=== PATIENT | male | born 1960 | race Caucasian/White ===

== ENCOUNTER 2016-08-08 05:52 | Day surgery (SDC) | payer BC, OTHER ==
[2016-08-06 18:29] VITALS: BMI 35.2
[2016-08-08] MEDS ORDERED: NITROGLYCERIN SL TABS 0.4 MG TAB SUBLINGUAL PRN (05:57)
[2016-08-08] MEDS ORDERED: ALPRAZolam 0.5 MG TAB PO PRN (05:57)
[2016-08-08] MEDS ORDERED: SODIUM CHLORIDE 0.9% 1,000 ML in EMPTY BAG 1 BAG IV ONE (05:57)
[2016-08-08] MEDS ORDERED: ALPRAZolam 0.25 MG TAB PO PRN (05:57)
[2016-08-08] MEDS ORDERED: ATORVASTATIN 80 MG TAB PO STA (05:57)
[2016-08-08] MEDS ORDERED: ASPIRIN 325 MG TAB PO STA (05:57)
[2016-08-08 06:29] VITALS: PULSE 52; RESP 18; TEMP 98.6
[2016-08-08 06:40] LABS: Glucose,Whole Blood 165 mg/dL (75-99)
[2016-08-08 06:42] LABS: Anion Gap 11 mmol/L; Blood Urea Nitrogen 13 mg/dL (9-20); Carbon Dioxide 25 mmol/L (22-30); Chloride 107 mmol/L (98-107); Glucose 167 mg/dL (74-99); Non-African American GFR(MDRD) >60 (>60 ml/min/1.73 sqM); Potassium 4.1 mmol/L (3.5-5.1); Sodium 143 mmol/L (137-145)
[2016-08-08 06:44] LABS: Basophils # (A) 0.1 k/uL (0-0.2); Basophils % (A) 1 %; CHCM 34.2; Eosinophils # (A) 0.4 k/uL (0-0.7); Eosinophils % (A) 3 %; HCT 41.5 % (39.0-53.0); HDW 2.82; HGB 13.9 gm/dL (13.0-17.5); Luc # (Auto) 0.16; Luc % (Auto) 1; Lymphocytes # (A) 1.7 k/uL (1.0-4.8); Lymphocytes % (A) 15 %; MCH 28.4 pg (25.0-35.0); MCHC 33.4 g/dL (31.0-37.0); Mean Platelet Volume 8.5; Monocytes # (A) 0.7 k/uL (0-1.0); Monocytes % (A) 6 %; Neutrophils # (A) 8.4 k/uL (1.3-7.7); Neutrophils % (A) 74 %; RBC 4.88 m/uL (4.30-5.90); RDW 13.5 % (11.5-15.5); WBC 11.4 k/uL (3.8-10.6); WBC (Perox) 11.05
[2016-08-08] MEDS: MIDAZOLAM 2 MG/2 ML VIAL IV ONE ×2 (07:26→07:31)
[2016-08-08] MEDS ORDERED: IV FLUID CONTINUATION 1,000 ML IV ONE (07:27)
[2016-08-08] MEDS ORDERED: diphenhydrAMINE 50 MG/ML 1 ML VIAL IVP ONE (07:27)
[2016-08-08] MEDS ORDERED: LIDOCAINE 2% INJ 20 MG/ML SQ ONE (07:29)
[2016-08-08] MEDS ORDERED: HEPARIN SODIUM 1,000 UNIT/ML VIAL IV ONE (07:36)
[2016-08-08] MEDS ORDERED: VERAPAMIL SYRINGE (5 MG/10 ML) INTRAARTER ONE (07:36)
[2016-08-08] MEDS ORDERED: NITROGLYCERIN SL TABS 0.4 MG TAB SUBLINGUAL ONE (07:53)
[2016-08-08] MEDS ORDERED: IOHEXOL 350 MG/ML 100 ML BOTTLE INJ ONE (07:53)
[2016-08-08] MEDS ORDERED: RX INFO: IV CONTRAST WAS GIVEN 1 EACH MISC MISCELLANE PRN (08:13)
[2016-08-08] MEDS ORDERED: SODIUM CHLORIDE 0.9% 1,000 ML IV SCH (08:15)
--- NOTE | 2016-08-08 10:52 | CC ---
DATE OF SERVICE: 08/08/2016 PROCEDURE: Left heart catheterization, coronary angiography and left ventriculography. PERFORMED BY: Dr. Kolby Ordonez. CLINICAL INFORMATION: Mr. Manuel Villanueva is a 56-year-old gentleman with a known history of type 2 diabetes, hypertension, hyperlipidemia, and CAD. In August of last year he underwent a staged intervention of the mid LAD and proximal RCA. The proximal RCA was an orbital atherectomy and stenting and mid left anterior descending artery was treated with a drug-eluting stent. Because of symptoms strongly suggestive of angina, he was advised cardiac catheterization. Risks, benefits, options, rationale were explained to the patient and family in detail. Moderate Conscious Sedation was provided for 30 min. PROCEDURE NOTE: Under local anesthesia and strict aseptic precautions, a 6 Norwegian introducer was placed in the right radial artery. I used a micropuncture technique to gain access to the right radial artery and placed a 6 Norwegian introducer under strict fluoroscopic guidance. Subsequently using an Ultima 2 catheter, I performed selective coronary angiography and a pigtail catheter was used to perform an LV gram. The catheter and sheath was taken out and a TR band applied as per protocol. This is a large TR band. The patient received 3000 units of heparin intravenously. Saturation of the fingers of the right hand was 91%. Saturation of the fingers of the right hand was 91%. Patient tolerated the procedure well without complications. CARDIAC CATHETERIZATION FINDINGS: The left ventricle end-diastolic pressure was 12 mmHg without appreciable change after the LV gram, and there was no gradient across the aortic valve. CORONARY ANGIOGRAPHIC FINDINGS: RIGHT CORONARY ARTERY: Technically this is a dominant vessel that does not have any significant obstructive disease. The site of previous stenting of the vessel is widely patent and supplies a fairly decent amount of myocardium; gives a large acute marginal that runs almost parallel to the RCA. Distally the RCA was small caliber, small distribution vessel that bifurcates into and PDA small PLV. There is no significant disease in the rest of the right coronary artery. RCA therefore is widely patent at the site of previous stenting with some distal diffuse disease. LEFT MAIN CORONARY ARTERY: This is a short, patent, disease-free vessel that bifurcates into LAD and circumflex. LEFT ANTERIOR DESCENDING CORONARY ARTERY: Good caliber vessel extends along the anterior wall. Proximally, there is about a 40% plaque after which the stented segment is widely patent and there is a small diagonal branch that seems to come off from the area where the stented segment is located. There is good flow in the diagonal branch as well. Beyond the stented segment caliber vessel is good, but in the distal one fourth of the vessel becomes smaller in caliber and has minor diffuse disease. There is also another diagonal branch that comes off and the distal one third, is a fair caliber in distribution supplies minor disease. LEFT POSTERIOR CIRCUMFLEX CORONARY ARTERY: Technically this a codominant vessel that gives off two obtuse marginal branches and then continues as a posterolateral branch. There are minor diffuse irregularities of anywhere from 30 to 45% involving the distal branches of the circumflex. There is no significant disease and the vessel is pretty much unchanged compared to the previous images from August 2015. LEFT VENTRICULOGRAM: This was performed in 30 degree KING projection and revealed left ventricle is of normal size with good systolic function without segmental wall motion. Ejection fraction of 60% without mitral regurgitation. FINAL IMPRESSION: This patient is widely patent in the mid LAD and proximal RCA, both of which were stented in August 2015. The circumflex has mildly diffuse disease, is a codominant vessel. LV pressures are normal. LV systolic function is normal. Ejection fraction of 60%. RECOMMENDATIONS: Findings were discussed with the patient and family. I am recommending continued medical therapy with risk factor modification. No intervention is necessary and patient will be discharged later on today. MTDD
--- NOTE | 2016-08-08 11:34 | LTR ---
August 08, 2016 RE: Manuel Villanueva Dear Dr. Reyes: Thank you for the opportunity to participate in the care of Mr. Villanueva. I am pleased to report to you that he does not have any significant obstructive disease. Both the vessels that were stented in August of last year are widely patent. Continued medical therapy with risk factor modification planned. Patient will be discharged later on today if he remains stable. Thank you for your referral. Please call for questions. With kindest regards, Sincerely, JOHANNA GIRON MD
[2016-08-08 16:44] VITALS: BP 153/73
== END 2016-08-08 16:00 | disposition home or self-care (01) ==
LOC: CATHCVL 05:52
PROVIDERS: ATTEND Internal Medicine Interventional Cardiology
DX: I25.110 Atherosclerotic heart disease of native coronary artery with unstable angina pectoris (principal); I10 Essential (primary) hypertension; Z87.891 Personal history of nicotine dependence; Z95.5 Presence of coronary angioplasty implant and graft; E78.00 Pure hypercholesterolemia, unspecified; Z79.02 Long term (current) use of antithrombotics/antiplatelets; Z79.82 Long term (current) use of aspirin; Z79.899 Other long term (current) drug therapy
CPT/HCPCS: 93458; 80048; 85025; 99152; 99153; C1769 ×2; J2001; J2250; J1200; Q9967; J1644

== ENCOUNTER → 2017-10-22 | Outpatient (CLI) | payer OTHER ==
[2017-10-22 12:25] LABS: Anion Gap 10 mmol/L; Blood Urea Nitrogen 15 mg/dL (9-20); Carbon Dioxide 26 mmol/L (22-30); Chloride 106 mmol/L (98-107); Potassium 4.2 mmol/L (3.5-5.1); Sodium 142 mmol/L (137-145)
[2017-10-22 12:44] LABS: HCT 43.5 % (39.0-53.0); HGB 14.4 gm/dL (13.0-17.5); MCH 27.5 pg (25.0-35.0); MCHC 33.1 g/dL (31.0-37.0); MCV 83.2 fL (80.0-100.0); Mean Platelet Volume 8.4; Platelet Count 227 k/uL (150-450); RBC 5.23 m/uL (4.30-5.90); RDW 13.2 % (11.5-15.5); WBC 10.6 k/uL (3.8-10.6)
== END | disposition home or self-care (01) ==
LOC: LABPAT 11:30
PROVIDERS: ATTEND Internal Medicine Interventional Cardiology
DX: Z01.812 Encounter for preprocedural laboratory examination (principal); I25.119 Atherosclerotic heart disease of native coronary artery with unspecified angina pectoris
CPT/HCPCS: 36415; 80051; 82565; 84520; 85027

== ENCOUNTER 2017-11-01 06:16 | Day surgery (SDC) | payer OTHER ==
[~2017-11-01 06:16] MED LIST: ALPRAZolam 0.25 MG TAB PO PRN; ALPRAZolam 0.5 MG TAB PO PRN; ASPIRIN 325 MG TAB PO STA; ATORVASTATIN 80 MG TAB PO STA; SODIUM CHLORIDE 0.9% 1,000 ML in EMPTY BAG 1 BAG IV ONE
[2017-11-01] MEDS ORDERED: SODIUM CHLORIDE 0.9% 1,000 ML IV ONE (07:00)
[2017-11-01 07:09] LABS: Glucose,Whole Blood 147 mg/dL (75-99)
[2017-11-01] MEDS ORDERED: VERAPAMIL 2.5 MG/ML 2 ML AMP ONE (08:46)
[2017-11-01] MEDS ORDERED: diphenhydrAMINE 50 MG/ML 1 ML VIAL ONE (08:46)
[2017-11-01] MEDS ORDERED: LIDOCAINE 1% INJ 10MG/ML (20 ML MDV) ONE ×2 (08:46→09:56)
[2017-11-01] MEDS ORDERED: HEPARIN SODIUM 1,000 UN/ML (10ML VL) ONE ×2 (08:46→10:48)
[2017-11-01] MEDS ORDERED: MIDAZOLAM 2 MG/2 ML VIAL ONE ×2 (08:47→13:15)
[2017-11-01] MEDS ORDERED: diphenhydrAMINE 50 MG/ML 1 ML VIAL IVP ONE (09:08)
[2017-11-01] MEDS ORDERED: MIDAZOLAM 2 MG/2 ML VIAL IVP ONE (09:08)
[2017-11-01] MEDS ORDERED: LIDOCAINE 1% (PF) 10MG/ML VIAL SQ ONE (09:10)
[2017-11-01] MEDS: VERAPAMIL SYRINGE (5 MG/10 ML) INTRAARTER ONE ×2 (09:16→09:53)
[2017-11-01] MEDS ORDERED: BIVALIRUDIN 250 MG in SODIUM CHLORIDE 0.9% 50 ML IV ONE ×2 (09:38→10:08)
[2017-11-01] MEDS ORDERED: BIVALIRUDIN BOLUS 250 MG/50 ML IV ONE (09:38)
[2017-11-01] MEDS: NITROGLYCERIN 1000MCG/10ML SYRINGE INTRACORON ONE ×2 (09:54→10:26)
[2017-11-01] MEDS ORDERED: IOPAMIDOL-370 100ML BTL INJ ONE ×2 (09:59→10:43)
[2017-11-01] MEDS ORDERED: NITROGLYCERIN SL TABS 0.4 MG TAB SUBLINGUAL ONE (10:23)
[2017-11-01] MEDS ORDERED: amLODIPine 5 MG TAB ONE ×2 (10:28→13:14)
[2017-11-01] MEDS ORDERED: CLOPIDOGREL 75 MG TAB PO ONE (10:30)
[2017-11-01] MEDS ORDERED: amLODIPine 5 MG TAB PO ONE (10:30)
[2017-11-01] MEDS ORDERED: CLOPIDOGREL 75 MG TAB ONE (10:31)
[2017-11-01] MEDS ORDERED: INDOMETHACIN 25 MG CAP PO PRN (10:43)
[2017-11-01] MEDS ORDERED: PANTOPRAZOLE 40 MG TABLET PO PRN (10:43)
[2017-11-01] MEDS ORDERED: LORATADINE 10 MG TAB PO PRN (10:43)
[2017-11-01] MEDS ORDERED: RX INFO: IV CONTRAST WAS GIVEN 1 EACH MISC MISCELLANE PRN (10:44)
[2017-11-01] MEDS ORDERED: ATROPINE SULFATE 0.1 MG/ML 10ML SYRINGE IV PRN (10:44)
[2017-11-01] MEDS ORDERED: MAG HYDROX/AL HYDROX/SIMETH 30 ML CUP PO PRN (10:44)
[2017-11-01] MEDS ORDERED: cloNIDine HCL 0.2 MG TAB PO STA (11:21)
[2017-11-01] MEDS: SODIUM CHLORIDE 0.9% 1,000 ML IV SCH ×2 (11:24→23:03)
[2017-11-01] MEDS: NITROGLYCERIN SL TABS 0.4 MG TAB SUBLINGUAL PRN ×2 (11:24→13:26)
--- NOTE | 2017-11-01 12:46 | CC ---
CARDIAC CATHETERIZATION REPORT DATE OF SERVICE: 11/01/2017 PROCEDURE: 1. Left heart catheterization and coronary angiography. 2. PTCA and stenting of proximal LAD with a drug-eluting stent. 3. The procedure initially started as a right radial, switched over to a right femoral because of significant vasospasm. PROCEDURE PERFORMED BY: Dr. Pauline Ordonez. Moderate conscious sedation time was 85 minutes. CLINICAL INFORMATION: Mr. Manuel Villanueva is a 57-year-old gentleman who underwent stenting of mid LAD performed by me on August 08, 2015. On the same month on August 30, 2015, I performed orbital atherectomy and stenting of a codominant RCA. He did well until recently, but came into the office with symptoms strongly suggestive of unstable angina. Therefore was advised coronary angiography. Risks, benefits, options, rationale were explained. PROCEDURE NOTE: Under local anesthesia and strict aseptic precautions, a 6-Ethiopian introducer was placed in the right radial artery. I used a micropuncture needle technique. Using an Ultimate 2 catheter, I performed selective coronary angiography of the right coronary artery. I used the same catheter, but I could not get much success. I used a standard left Sommer diagnostic catheter for selective coronary angiography of the left system and noted that he had a significant proximal LAD lesion. I tried multiple guide catheters, but I could not get good seating and then he developed significant vasospasm of the radial artery and therefore I abandoned the procedure and went from the right femoral approach. Under strict aseptic precautions, local anesthesia, a 6-Ethiopian introducer was placed in the right femoral artery. I used a standard JL4 guide catheter and cannulated the left coronary artery. I used a BMW wire to cross the lesion. A 3.0 caliber 12 mm Trek balloon was used to pre-dilate the lesion. I then deployed a 3.5 caliber 12 mm long Xience stent in the proximal LAD just before the previously placed stent and telescoped with this new stent of today into the previous stent. Excellent angiographic result was achieved. Patient had significant chest discomfort, but very mild J-point elevation and precordial leads was noted. Excellent angiographic result was achieved. Patient received Angiomax bolus and infusion as per protocol. He was already on Plavix but received additional 300 mg of Plavix. The sheath was sutured and he was sent to the room in a stable condition. The right radial sheath was taken out as per protocol and a TR band applied with good saturation in the fingers of the right hand. Patient tolerated the procedure well without complication. His right femoral sheath will be pulled at about 1:00 pm today. I discussed the results in detail with the patient and . I expect he will be discharged tomorrow if he remains stable. CARDIAC CATHETERIZATION FINDINGS: The left ventricle end-diastolic pressure was about 8-10 mmHg without any gradient across the aortic valve. CORONARY ANGIOGRAPHY FINDINGS: RIGHT CORONARY ARTERY Technically a codominant vessel and . This is widely patent. The proximal site which was stented is widely patent with remarkably good angiographic appearance and flow without any issues. Distally, the vessel bifurcates into two branches, supplies a fair amount of myocardium. It barely crosses the crux and is a codominant vessel, but no other significant disease is noted. LEFT MAIN CORONARY ARTERY: This is a short patent disease-free vessel that bifurcates into LAD and circumflex. Left main is quite short and patent. LEFT ANTERIOR DESCENDING CORONARY ARTERY: Very proximally, before the origin of the is an eccentric 80% stenosis that is located just before a previously placed stent. The previously placed stent is widely patent and it gives off some septal and diagonal branches as well and it also gives off some septal and diagonal branches. All of these have minor irregularities and no significant disease is noted. LEFT POSTERIOR CIRCUMFLEX CORONARY ARTERY: Technically, a codominant/dominant vessel in the midportion there is a 40% to 50% narrowing. No other significant disease is noted in the circumflex system and the distal PDA and PLV branches are also free of significant disease. Minor irregularities are noted with 35%-40% mid circumflex lesion. RECOMMENDATION: Left ventriculogram was not performed. PCI FINDINGS: Following the PCI of proximal LAD, the residual stenosis was 0% with remarkably improvement in angiographic appearance and flow without evident complication. The flow was quite brisk and result was excellent and the findings were discussed and images reviewed with the patient and . He will be discharged tomorrow if he remains stable. Dual antiplatelet therapy was initiated and should be continued without interruption for at least one year. MMODL / IJN: [id number] /
[2017-11-01] MEDS ORDERED: NITROGLYCERIN SL TABS 0.4 MG TAB SUBLINGUAL STA (13:20)
[2017-11-01] MEDS ORDERED: amLODIPine 5 MG TAB PO STA (13:20)
[2017-11-01] MEDS ORDERED: MIDAZOLAM 2 MG/2 ML VIAL IV ONE (13:20)
[2017-11-01 14:31] LABS: Glucose,Whole Blood 164 mg/dL (75-99)
[2017-11-01 16:58] LABS: Glucose,Whole Blood 175 mg/dL (75-99)
[2017-11-01] MEDS: INSULIN ASPART 100 UNIT/ML 1 ML 10 ML VIAL SQ SCH ×2 (17:24→21:51)
[2017-11-01 20:55] LABS: Glucose,Whole Blood 169 mg/dL (75-99)
[2017-11-01] MEDS: METOPROLOL TARTRATE 12.5 MG TAB PO SCH (21:53)
[2017-11-01] MEDS: GABAPENTIN 300 MG CAP PO SCH (21:53)
[2017-11-02 06:14] LABS: Glucose,Whole Blood 132 mg/dL (75-99)
[2017-11-02] MEDS: INSULIN ASPART 100 UNIT/ML 1 ML 10 ML VIAL SQ SCH (06:26)
[2017-11-02 07:35] LABS: Basophils # (A) 0.1 k/uL (0-0.2); Basophils % (A) 1 %; Eosinophils # (A) 0.2 k/uL (0-0.7); Eosinophils % (A) 3 %; HCT 37.7 % (39.0-53.0); HGB 12.4 gm/dL (13.0-17.5); Lymphocytes # (A) 1.1 k/uL (1.0-4.8); Lymphocytes % (A) 12 %; MCH 27.8 pg (25.0-35.0); MCHC 32.8 g/dL (31.0-37.0); MCV 84.7 fL (80.0-100.0); Mean Platelet Volume 8.1; Monocytes # (A) 0.4 k/uL (0-1.0); Monocytes % (A) 5 %; Neutrophils # (A) 6.8 k/uL (1.3-7.7); Neutrophils % (A) 78 %; Platelet Count 158 k/uL (150-450); RBC 4.45 m/uL (4.30-5.90); RDW 13.8 % (11.5-15.5); WBC 8.7 k/uL (3.8-10.6)
[2017-11-02 07:39] LABS: Anion Gap 6 mmol/L; Blood Urea Nitrogen 11 mg/dL (9-20); Calcium 8.5 mg/dL (8.4-10.2); Carbon Dioxide 26 mmol/L (22-30); Chloride 108 mmol/L (98-107); Glucose 129 mg/dL (74-99); Potassium 4.1 mmol/L (3.5-5.1); Sodium 140 mmol/L (137-145)
--- NOTE | 2017-11-02 08:11 | DS ---
DISCHARGE SUMMARY DATE OF ADMISSION: 11/01/2017 DATE OF DISCHARGE: 11/02/2017 DIAGNOSIS: Unstable angina. PROCEDURES PERFORMED: Left heart catheterization and PTCA and stenting of proximal LAD with a drug-eluting stent. The previously stented LAD which was just distal to the current area of stenting as well as the proximal RCA were widely patent. Mr. Villanueva was brought in for the procedure electively. I initially attempted from the right radial approach and performed coronary angiography, but for intervention, there was some difficulty and significant spasm was noted. Therefore I switched over to the right femoral approach. I performed stenting of proximal LAD, which was located just before the previously stented segment was 80% lesion. A single drug-eluting stent was deployed with excellent angiographic result. Postprocedure course was uneventful. Both his right radial and right femoral sites are clean and dry with a good pulse. The patient is asymptomatic this morning, ambulating without symptoms. His labs are good with a platelet count of 158, and a hemoglobin of 12.4. Renal function is good. EKG revealed sinus bradycardia, no acute changes. His cath sites are clean and dry. PHYSICAL EXAMINATION: Blood pressure is 130/60, pulse rate is 58 per minute. There is no JVD or carotid bruit. S1-S2 heard normally with somewhat distant sounds. Lungs are clear. Abdomen is soft, nontender. Lower extremities reveal normal pulses. No edema. Central nervous system is normal. This patient has type 2 diabetes, hypertension, hyperlipidemia, CAD with multivessel PCI. I am recommending that he can be discharged on his current home medications with the only exception being metformin will be held for 48 hours and that is he will start on Saturday, November 03. His metoprolol tartrate will be reduced from 25 mg b.i.d. to 25 mg in the morning only. These instructions were given. I will see him in the office on November 04 at 1:00 pm in our main office in [place]. Discharge instructions were given. Instructions regarding activity, diet, medications were given and patient will be discharged later on this morning after he is up and about. MMODL / IJN: [id number] /
[2017-11-02] MEDS: GABAPENTIN 300 MG CAP PO SCH (08:15)
[2017-11-02] MEDS: METOPROLOL TARTRATE 12.5 MG TAB PO SCH (08:15)
[2017-11-02 08:20] VITALS: BP 181/77; PULSE 63; RESP 20; TEMP 98
[2017-11-02] MEDS ORDERED: CLOPIDOGREL 75 MG TAB PO SCH (09:00)
[2017-11-02] MEDS ORDERED: LOSARTAN 50 MG TAB PO SCH (09:00)
[2017-11-02] MEDS ORDERED: SERTRALINE 100 MG TAB PO SCH (09:00)
[2017-11-02 10:37] VITALS: BMI 35.3
[2017-11-02 14:27] LABS: Hemoglobin A1C 6.9 % (4.0-6.0)
[2017-11-02] MEDS ORDERED: ATORVASTATIN 80 MG TAB PO SCH (21:00)
== END 2017-11-02 10:19 | disposition home or self-care (01) ==
LOC: CATHCVL 06:16 → 6SEL 15:46 → CATHCVL 11-02 10:19
PROVIDERS: ATTEND Internal Medicine Interventional Cardiology
DX: I25.110 Atherosclerotic heart disease of native coronary artery with unstable angina pectoris (principal); I10 Essential (primary) hypertension; Z87.891 Personal history of nicotine dependence; E11.8 Type 2 diabetes mellitus with unspecified complications; Z79.84 Long term (current) use of oral hypoglycemic drugs; Z95.5 Presence of coronary angioplasty implant and graft; E78.00 Pure hypercholesterolemia, unspecified; Z79.02 Long term (current) use of antithrombotics/antiplatelets; Z79.82 Long term (current) use of aspirin; Z79.899 Other long term (current) drug therapy
CPT/HCPCS: 93458; 80048; 85025; 83036; C9600; C1769 ×4; C1887 ×3; C1725; C1894 ×2; C1874; J2250; J1200; J0583; J2001; J1644; Q9967

== ENCOUNTER 2021-02-01 09:30 | Emergency (ER) | payer OTHER ==
--- NOTE | 2021-02-01 10:12 | ED ---
Abdominal Pain HPI - General Chief Complaint: Abdominal Pain Stated Complaint: abd pain/left shoulder pain/vomiting Time Seen by Provider: 02/01/21 10:11 Source: patient, RN notes reviewed Mode of arrival: ambulatory Limitations: no limitations - History of Present Illness Initial Comments: This a 60-year-old male presents emergency Department chief complaint left lower quadrant abdominal pain. Patient states pain started yesterday worsened throughout the night does admit to nausea vomiting no fevers or chills no chest pain complaint left shoulder pain which has been ongoing worse with popping and clicking of his left shoulder. He has no [place] shortness breath no headache no dizziness. Has no history of diverticulitis, kidney stones states nothing really makes the pain feel better or worse at this time. No prior abdominal surgeries. - Related Data Home Medications Medication Instructions Recorded Confirmed Aspirin 81 mg PO DAILY 08/04/15 02/01/21 Omeprazole 20 mg PO DAILY PRN 08/04/15 02/01/21 Sertraline [Zoloft] 100 mg PO DAILY 08/04/15 02/01/21 Nitroglycerin Sl Tabs [Nitrostat] 0.4 mg SUBLINGUAL Q5M PRN 08/24/15 02/01/21 Gabapentin [Neurontin] 300 mg PO TID 10/25/17 02/01/21 Indomethacin [Indocin] 50 mg PO TID PRN 02/01/21 02/01/21 Losartan Potassium [Cozaar] 100 mg PO DAILY 02/01/21 02/01/21 Metoprolol Tartrate [Lopressor] 25 mg PO DAILY 02/01/21 02/01/21 amLODIPine [Norvasc] 10 mg PO DAILY 02/01/21 02/01/21 Previous Rx's Medication Instructions Recorded Atorvastatin [Lipitor] 80 mg PO HS #30 tab 08/09/15 Clopidogrel [Plavix] 75 mg PO DAILY #30 tab 08/09/15 metFORMIN HCL [Glucophage] 1,000 mg PO BID #0 08/09/15 Ondansetron Odt [Zofran Odt] 4 mg PO Q8HR PRN #10 tab 02/01/21 Tamsulosin [Flomax] 0.4 mg PO DAILY #7 cap 02/01/21 Allergies Allergy/AdvReac Type Severity Reaction Status Date / Time No Known Allergies Allergy Verified 02/01/21 12:26 Review of Systems ROS Statement: Those systems with pertinent positive or pertinent negative responses have been documented in the HPI. ROS Other: All systems not noted in ROS Statement are negative. Past Medical History Past Medical History: Coronary Artery Disease (CAD), Chest Pain / Angina, Diabetes Mellitus, GERD/Reflux, Hearing Disorder / Deafness, Hyperlipidemia, Hypertension, Musculoskeletal Disorder Additional Past Medical History / Comment(s): PAIN RADIATES DOWN LT ARM OCC. OCC REFLUX. OCC EDEMA JOINTS, GOUT OCC. History of Any Multi-Drug Resistant Organisms: None Reported Past Surgical History: Heart Catheterization, Heart Catheterization With Stent Additional Past Surgical History / Comment(s): Hemorrhoidectomy. VASECTOMY. COLONOSCOPY. 08-08-15 heart cath w/ stent , 08-30-15 PTCA W/ STENT TO RCA. Past Anesthesia/Blood Transfusion Reactions: No Reported Reaction Date of Last Stent Placement:: 08/30/15 Past Psychological History: Depression Smoking Status: Never smoker Past Alcohol Use History: Rare Past Drug Use History: Marijuana - Past Family History Mother Family Medical History: CVA/TIA Additional Family Medical History / Comment(s): MOM AT AGE 47 FROM COMPLICATIONS FROM A STROKE. Father Family Medical History: Myocardial Infarction ([place]) Additional Family Medical History / Comment(s): cabg General Exam Limitations: no limitations General appearance: alert, in no apparent distress Head exam: Present: atraumatic, normocephalic, normal inspection Eye exam: Present: normal appearance, PERRL, EOMI. Absent: scleral icterus, conjunctival injection, periorbital swelling Neck exam: Present: full ROM Respiratory exam: Present: normal lung sounds bilaterally. Absent: respiratory distress, wheezes, rales, rhonchi, stridor Cardiovascular Exam: Present: regular rate, normal rhythm, normal heart sounds. Absent: systolic murmur, diastolic murmur, rubs, gallop, clicks GI/Abdominal exam: Present: soft, tenderness, normal bowel sounds. Absent: distended, guarding, rebound, rigid Extremities exam: Present: other (Pain with movement left shoulder, pain with palpation the left shoulder) Back exam: Absent: CVA tenderness (R), CVA tenderness (L) Course Vital Signs 02/01/21 09:41 Temperature 98 F Pulse Rate 74 Respiratory 18 Rate Blood Pressure 190/98 O2 Sat by Pulse 99 Oximetry Medical Decision Making - Medical Decision Making Patient CT shows evidence of ureteral colic type. Patient's labs are essentially unremarkable be discharged to admission return parameters were discussed. - Lab Data Result diagrams: 02/01/21 11:13 02/01/21 11:13 Lab Results 02/01/21 02/01/21 02/01/21 Range/Units 10:10 11:13 11:13 WBC 14.3 H (3.8-10.6) k/uL RBC 5.12 (4.30-5.90) m/uL Hgb 14.8 (13.0-17.5) gm/dL Hct 44.2 (39.0-53.0) % MCV 86.3 (80.0-100.0) fL MCH 28.9 (25.0-35.0) pg MCHC 33.5 (31.0-37.0) g/dL RDW 13.4 (11.5-15.5) % Plt Count 232 (150-450) k/uL MPV 8.1 Neutrophils % 91 % Lymphocytes % 5 % Monocytes % 2 % Eosinophils % 1 % Basophils % 0 % Neutrophils # 13.1 H (1.3-7.7) k/uL Lymphocytes # 0.7 L (1.0-4.8) k/uL Monocytes # 0.4 (0-1.0) k/uL Eosinophils # 0.2 (0-0.7) k/uL Basophils # 0.0 (0-0.2) k/uL Sodium (137-145) mmol/L Potassium (3.5-5.1) mmol/L Chloride (98-107) mmol/L Carbon Dioxide (22-30) mmol/L Anion Gap mmol/L BUN (9-20) mg/dL Creatinine (0.66-1.25) mg/dL Est GFR (CKD-EPI)AfAm (>60 ml/min/1.73 sqM) Est GFR (CKD-EPI)NonAf (>60 ml/min/1.73 sqM) Glucose (74-99) mg/dL POC Glucose (mg/dL) 207 H (75-99) mg/dL POC Glu Sales Expert ID [facility] Plasma Lactic Acid Isaias (0.7-2.0) mmol/L Calcium (8.4-10.2) mg/dL Total Bilirubin (0.2-1.3) mg/dL AST (17-59) U/L ALT (4-49) U/L Alkaline Phosphatase (38-126) U/L Troponin I (0.000-0.034) ng/mL Total Protein (6.3-8.2) g/dL Albumin (3.5-5.0) g/dL Amylase (30-110) U/L Lipase (23-300) U/L Urine Color Light Yellow Urine Appearance Clear (Clear) Urine pH 6.0 (5.0-8.0) Ur Specific Burnham 1.050 H (1.001-1.035) Urine Protein Trace H (Negative) Urine Glucose (UA) 2+ H (Negative) Urine Ketones 1+ H (Negative) Urine Blood Trace H (Negative) Urine Nitrite Negative (Negative) Urine Bilirubin Negative (Negative) Urine Urobilinogen <2.0 (<2.0) mg/dL Ur Leukocyte Esterase Negative (Negative) Urine RBC 4 (0-5) /hpf Urine WBC 4 (0-5) /hpf Ur Squamous Epith Cells <1 (0-4) /hpf 02/01/21 02/01/21 02/01/21 Range/Units 11:13 11:13 11:13 WBC (3.8-10.6) k/uL RBC (4.30-5.90) m/uL Hgb (13.0-17.5) gm/dL Hct (39.0-53.0) % MCV (80.0-100.0) fL MCH (25.0-35.0) pg MCHC (31.0-37.0) g/dL RDW (11.5-15.5) % Plt Count (150-450) k/uL MPV Neutrophils % % Lymphocytes % % Monocytes % % Eosinophils % % Basophils % % Neutrophils # (1.3-7.7) k/uL Lymphocytes # (1.0-4.8) k/uL Monocytes # (0-1.0) k/uL Eosinophils # (0-0.7) k/uL Basophils # (0-0.2) k/uL Sodium 138 (137-145) mmol/L Potassium 4.2 (3.5-5.1) mmol/L Chloride 102 (98-107) mmol/L Carbon Dioxide 23 (22-30) mmol/L Anion Gap 13 mmol/L BUN 17 (9-20) mg/dL Creatinine 1.38 H (0.66-1.25) mg/dL Est GFR (CKD-EPI)AfAm 63 (>60 ml/min/1.73 sqM) Est GFR (CKD-EPI)NonAf 55 (>60 ml/min/1.73 sqM) Glucose 214 H (74-99) mg/dL POC Glucose (mg/dL) (75-99) mg/dL POC Glu Sales Expert ID Plasma Lactic Acid Isaias 2.0 (0.7-2.0) mmol/L Calcium 9.5 (8.4-10.2) mg/dL Total Bilirubin 0.8 (0.2-1.3) mg/dL AST 25 (17-59) U/L ALT 23 (4-49) U/L Alkaline Phosphatase 87 (38-126) U/L Troponin I <0.012 (0.000-0.034) ng/mL Total Protein 7.7 (6.3-8.2) g/dL Albumin 5.0 (3.5-5.0) g/dL Amylase 71 (30-110) U/L Lipase 132 (23-300) U/L Urine Color Urine Appearance (Clear) Urine pH (5.0-8.0) Ur Specific Burnham (1.001-1.035) Urine Protein (Negative) Urine Glucose (UA) (Negative) Urine Ketones (Negative) Urine Blood (Negative) Urine Nitrite (Negative) Urine Bilirubin (Negative) Urine Urobilinogen (<2.0) mg/dL Ur Leukocyte Esterase (Negative) Urine RBC (0-5) /hpf Urine WBC (0-5) /hpf Ur Squamous Epith Cells (0-4) /hpf Disposition Clinical Impression: Left ureteral calculus Disposition: HOME SELF-CARE Condition: Stable Instructions (If sedation given, give patient instructions): Kidney Stones (ED) Additional Instructions: Please return to the Emergency Department if symptoms worsen or any other concerns. Prescriptions: Tamsulosin [Flomax] 0.4 mg PO DAILY #7 cap Ondansetron Odt [Zofran Odt] 4 mg PO Q8HR PRN #10 tab PRN Reason: Nausea Is patient prescribed a controlled substance at d/c from ED?: No Referrals: Alec Reyes MD [Primary Care Provider] - 1-2 days Carson Ramirez MD [STAFF PHYSICIAN] - 1-2 days Time of Disposition: 15:38
[2021-02-01 10:20] LABS: Glucose,Whole Blood 207 mg/dL (75-99)
[2021-02-01] MEDS ORDERED: KETOROLAC 15 MG/ML 1 ML VIAL IVP STA (10:30)
[2021-02-01] MEDS ORDERED: ONDANSETRON 4 MG/2 ML VIAL IVP STA (10:30)
[2021-02-01] MEDS ORDERED: SODIUM CHLORIDE 0.9% 1,000 ML IV ONE ×2 (10:30→13:40)
[2021-02-01] MEDS ORDERED: SODIUM CHLORIDE 0.9% 500 ML 500 ML IV ONE (10:30)
[2021-02-01] MEDS ORDERED: HYDROmorphone 0.5 MG/0.5 ML SYRINGE IVP STA (10:30)
[2021-02-01 11:24] LABS: Basophils % (A) 0 %; Eosinophils # (A) 0.2 k/uL (0-0.7); Eosinophils % (A) 1 %; HCT 44.2 % (39.0-53.0); HGB 14.8 gm/dL (13.0-17.5); Lymphocytes # (A) 0.7 k/uL (1.0-4.8); Lymphocytes % (A) 5 %; MCH 28.9 pg (25.0-35.0); MCHC 33.5 g/dL (31.0-37.0); MCV 86.3 fL (80.0-100.0); Mean Platelet Volume 8.1; Monocytes # (A) 0.4 k/uL (0-1.0); Monocytes % (A) 2 %; Neutrophils # (A) 13.1 k/uL (1.3-7.7); Neutrophils % (A) 91 %; Platelet Count 232 k/uL (150-450); RBC 5.12 m/uL (4.30-5.90); RDW 13.4 % (11.5-15.5); WBC 14.3 k/uL (3.8-10.6)
[2021-02-01 11:38] LABS: Calcium 9.5 mg/dL (8.4-10.2); Potassium 4.2 mmol/L (3.5-5.1); Total Bilirubin 0.8 mg/dL (0.2-1.3); Total Protein 7.7 g/dL (6.3-8.2)
--- NOTE | 2021-02-01 13:40 | CT ---
EXAMINATION TYPE: CT abdomen pelvis w con DATE OF EXAM: 02/01/2021 COMPARISON: None HISTORY: LLQ pain, nausea, vomiting CT DLP: 1968.5 mGycm CONTRAST: CT scan of the abdomen and pelvis is performed without Oral Contrast and with IV Contrast, patient in jected with 100 mL of Isovue 300. FINDINGS: LUNG BASES-: No visible nodule. No infiltrate. LIVER/GB: No calcified gallstones. No space occupying hepatic lesion. Biliary tree is of normal ca liber. PANCREAS: No inflammation. No distinct mass. SPLEEN: No splenic enlargement. No lesion seen. ADRENALS: No nodule. No thickening. KIDNEYS/BLADDER: 4 mm obstructing calculus proximal left ureter just distal to the UPJ. Hydronephrosi s is mild to moderate in degree. There is left renal edema noted. 5.5 mm nonobstructing calculus uppe r pole right kidney. No distinct renal mass. Urinary bladder grossly unremarkable. BOWEL: Normal appendix. Normal bowel caliber. No inflammation. GENITAL ORGANS: No gross abnormality. LYMPH NODES: No greater than 1cm abdominal or pelvic lymph nodes are appreciated. AORTA: No significant abnormality. OSSEOUS STRUCTURES: Severe degenerative disc disease lower lumbar spine with vacuum disc noted at sev eral levels. OTHER: No significant additional abnormality is seen. IMPRESSION: 1. 4 mm obstructing calculus proximal left ureter just distal to the UPJ. Hydronephrosis is mild to m oderate in degree. There is left renal edema noted.
[2021-02-01] MEDS ORDERED: TAMSULOSIN 0.4 MG CAP.ER.24H PO STA (13:47)
[2021-02-01 14:47] LABS: Appearance,Urine Clear (Clear); Bilirubin,Urine Negative (Negative); Blood,Urine Trace (Negative); Color,Urine Light Yellow; Glucose,Urine (UA) 2+ (Negative); Ketones,Urine 1+ (Negative); Leukocyte Esterase,Urine Negative (Negative); Nitrite,Urine Negative (Negative); Protein,Urine Trace (Negative); RBC,Urine 4 /hpf (0-5); Squamous Epithelial Cell,Urine <1 /hpf (0-4); Urobilinogen,Urine <2.0 mg/dL (<2.0); WBC,Urine 4 /hpf (0-5)
[2021-02-01] MEDS ORDERED: ACET/COD 300 MG/30 MG STARTER PACK 6 TAB BTL PO STA (15:38)
[2021-02-01 15:47] VITALS: BP 148/86; PULSE 79; RESP 19; TEMP 97.6
== END 2021-02-01 15:50 | disposition home or self-care (01) ==
LOC: EC 09:30
DX: N13.2 Hydronephrosis with renal and ureteral calculous obstruction (principal); E11.9 Type 2 diabetes mellitus without complications; I10 Essential (primary) hypertension; I25.10 Atherosclerotic heart disease of native coronary artery without angina pectoris; M25.512 Pain in left shoulder; K21.9 Gastro-esophageal reflux disease without esophagitis; H91.90 Unspecified hearing loss, unspecified ear; M19.90 Unspecified osteoarthritis, unspecified site; Z95.5 Presence of coronary angioplasty implant and graft; Z79.82 Long term (current) use of aspirin; Z79.899 Other long term (current) drug therapy
CPT/HCPCS: 36415; 93005; 80053; 82150; 83605; 83690; 84484; 85025; 81001; 74177; 99284; 96374; 96375; 96361; J2405; J1885; J1170; Q9967